=== PATIENT | male | born 1965 | race Caucasian/White ===

== ENCOUNTER 2021-05-17 08:36 | Observation (INO) ==
[~2021-05-17 08:36] MED LIST: Buffered Lidocaine 1% SYRIN 1 ml INTRADERM ONE; Famotidine IV 10 MG/ML 2 ml VIAL (20 mg) IV ONE; Lactated Ringers 1000 ml BAG 1,000 ML IV SCH
[2021-05-17] MEDS ORDERED: ceFAZolin 2 GM PREMIX 2 GM/50 ML BAG ONE (09:16)
[2021-05-17] MEDS ORDERED: Famotidine IV 10 MG/ML 2 ml VIAL (20 mg) ONE (09:16)
[2021-05-17] MEDS ORDERED: Midazolam 2 mg/2 ml VIAL 1 mg/ml 2 ml VIAL (2 mg) ONE ×3 (10:50→14:17)
[2021-05-17] MEDS ORDERED: Propofol 10 MG/ML 20 ML BTL ONE ×2 (10:51→14:19)
[2021-05-17] MEDS ORDERED: Labetalol IV 5 MG/ML 20 ml VIAL IV PUSH ONE ×2 (10:51→11:27)
[2021-05-17] MEDS ORDERED: Lidocaine 2% PF 5 ML VIAL ONE (10:51)
[2021-05-17] MEDS ORDERED: Labetalol IV 5 MG/ML 20 ml VIAL ONE (10:57)
[2021-05-17 11:33] LABS: INR 1.02 (0.86-1.15)
[2021-05-17] MEDS ORDERED: fentaNYL 100 mcg/2 ml 50 MCG/ML VIAL ONE ×4 (12:04→17:03)
[2021-05-17] MEDS ORDERED: Morphine 2 MG/ML SYRINGE IV PRN (13:51)
[2021-05-17] MEDS ORDERED: Ondansetron ODT 4 mg TAB 4 MG TAB PO PRN (13:51)
[2021-05-17] MEDS ORDERED: diPHENhydraMINE 25 mg TAB PO PRN (13:51)
[2021-05-17] MEDS ORDERED: Lactulose 30 ml UDC PO PRN (13:51)
[2021-05-17] MEDS ORDERED: Magnesium Hydroxide LIQ 30 ML UDC PO PRN (13:51)
[2021-05-17] MEDS ORDERED: diPHENhydraMINE IV 50 MG/ML 1 ml VIAL (BENADRYL) IV PRN (13:51)
[2021-05-17] MEDS ORDERED: Ondansetron 4 mg VIAL 2 MG/ML 2 ml VIAL IV PRN ×2 (13:51→15:42)
[2021-05-17] MEDS ORDERED: EPHEDrine (Pressors) 50 MG/ML VIAL ONE (14:18)
[2021-05-17] MEDS ORDERED: Bupivacaine 0.5% SDV PF 30ML VIAL ONE (14:20)
[2021-05-17] MEDS ORDERED: oxyCODONE/Acetamin 5/325 mg TAB ONE ×2 (15:15→15:16)
[2021-05-17] MEDS: oxyCODONE/Acetamin 5/325 mg TAB PO PRN ×2 (15:16→20:48)
[2021-05-17] MEDS ORDERED: hydrALAZINE 20 mg/ml 1 ML Vial IV IV SLOW PU ONE (15:25)
[2021-05-17] MEDS ORDERED: hydrALAZINE 20 mg/ml 1 ML Vial IV ONE (15:28)
[2021-05-17] MEDS ORDERED: Naloxone 0.4 mg VIAL 0.4 mg/ml 1 ml VIAL IV PRN (15:42)
[2021-05-17] MEDS ORDERED: Levalbuterol 0.63MG/3ML NEB UNIT OF USE INH PRN (15:50)
[2021-05-17] MEDS ORDERED: Levalbuterol 0.63MG/3ML NEB UNIT OF USE INH ONE (15:54)
[2021-05-17] MEDS: fentaNYL 100 mcg/2 ml 50 MCG/ML VIAL IV PRN ×5 (15:59→17:03)
[2021-05-17] MEDS: Lactated Ringers 1000 ml BAG 1,000 ML IV SCH (18:31)
[2021-05-17] MEDS: Magnesium Hydroxide LIQ 30 ML UDC PO SCH (20:51)
[2021-05-17] MEDS: ceFAZolin 1 GM ADVAN 1 GM in NS 0.9% 50 ML 50 ML IVPB SCH (21:40)
[2021-05-18] MEDS: oxyCODONE/Acetamin 5/325 mg TAB PO PRN ×3 (02:16→12:39)
[2021-05-18] MEDS: Lactated Ringers 1000 ml BAG 1,000 ML IV SCH (05:40)
[2021-05-18] MEDS: ceFAZolin 1 GM ADVAN 1 GM in NS 0.9% 50 ML 50 ML IVPB SCH ×2 (05:40→13:27)
[2021-05-18 06:38] LABS: Hematocrit 30 % (42-52); Hemoglobin 10.8 g/dL (14.0-18.0); Mean Platelet Volume 6.6 fL (7.4-10.4); Platelet Count 193 10^3/uL (150-450)
[2021-05-18 07:04] LABS: Calcium 8.8 mg/dL (8.6-10.3); EGFR African American 153.2 (>60); EGFR Non-African American 126.6 (>60); Potassium 4.1 mmol/L (3.5-5.0)
[2021-05-18] MEDS: Magnesium Hydroxide LIQ 30 ML UDC PO SCH (08:03)
[2021-05-18] MEDS ORDERED: Vitamin THERAPEUTIC TAB PO SCH (09:00)
[2021-05-18 11:41] VITALS: BP 152/68
== END 2021-05-18 14:40 | disposition home or self-care (01) ==
LOC: OR 08:36 → SSU 08:36
PROVIDERS: ADMIT Orthopaedic Surgery Adult Reconstructive Orthopaedic Surgery; ATTEND Orthopaedic Surgery Adult Reconstructive Orthopaedic Surgery